=== PATIENT | male | born 1990 | race Caucasian/White ===

== ENCOUNTER 2018-12-25 01:04 | Emergency (ER) | payer MEDICAID, OTHER ==
[~2018-12-25] VITALS: Ht 180.3 cm; Wt 71.6 kg
[2018-12-25 01:08] VITALS: Ht 180.3 cm; Wt 71.6 kg
--- NOTE | 2018-12-25 05:35 | ERD ---
ER Documentation Chief Complaint Chief Complaint R testicle discoloration (purple) X 4 days, no trauma ROS All systems reviewed and are negative except as per history of present illness. Allergies Allergies: Coded Allergies: No Known Allergy (Unverified , 12/25/18) FmHx Family History: No diabetes, No coronary disease, No other Physical Exam Vitals Vital Signs Date Temp Pulse Resp B/P (MAP) Pulse Ox O2 O2 Flow FiO2 Time Delivery Rate 12/25/18 98.2 53 19 124/85 100 Room Air 05:53 (98) 12/25/18 98.2 53 18 132/73 100 01:08 (92) Physical Exam Const: No acute distress Head: Atraumatic Eyes: Normal Conjunctiva ENT: Normal External Ears, Nose and Mouth. Neck: Full range of motion. No meningismus. Resp: Clear to auscultation bilaterally Cardio: Regular rate and rhythm, no murmurs Abd: Soft, non tender, non distended. Normal bowel sounds Skin: No petechiae or rashes Back: No midline or flank tenderness Ext: No cyanosis, or edema Neur: Awake and alert Psych: Normal Mood and Affect : Right scrotal areas purple with no edema or tender to palpation noted. There is normal testicular lay. Results 24 hrs Laboratory Tests Test 12/25/18 04:52 Urine Color YELLOW Urine Clarity CLEAR Urine pH 5.0 Urine Specific [facility] 1.023 Urine Ketones NEGATIVE mg/dL Urine Nitrite NEGATIVE mg/dL Urine Bilirubin NEGATIVE mg/dL Urine Urobilinogen NEGATIVE mg/dL Urine Leukocyte Esterase NEGATIVE Gerber/ul Urine Hemoglobin NEGATIVE mg/dL Urine Glucose NEGATIVE mg/dL Urine Total Protein NEGATIVE mg/dl Procedures/[facility] DIAGNOSTIC IMAGING REPORT Patient: ANNE-MARIE WEN : 1990 Age: 27 Sex: M MR #: [id number] DOS: 12/25/18 0419 Ordering MD: AILEEN SANDERS Location: [facility] Room/Bed: PROCEDURE: US Scrotum. CLINICAL INDICATION: scrotal ecchymoses TECHNIQUE: Multiple sonographic images of the scrotal region were obtained utilizing a linear array transducer with grayscale and color-flow and a Doppler imaging. COMPARISON: No prior studies are available for comparison. FINDINGS: The testicles are normal in size the right measuring 5.49 x 2.79 x 3.5 cm and the left measuring 5.34 x 2.38 x 3.5 cm. The testicular parenchymal echogenicity is homogeneous without focal lesions. Flow to both testicles without ultrasonic evidence of testicular torsion. The epididymi are normal in size the right head measuring 1.3 x 0.87 x 0.77 cm and the left head measuring 1.33 x 1.26 x 0.96 cm. No focal epididymal lesions. No hydroceles or varicoceles demonstrated. IMPRESSION: 1. Unremarkable testicles without focal lesions and no ultrasonic evidence of testicular torsion. 2. Unremarkable epididymi. 3. No evidence of hydroceles. RPTAT:AAJJ Physician Ld Date Time Electronically viewed and signed by Ian Page Physician on 12/25/2018 05:18 BM/ CC: AILEEN SANDERS [phone] MDM: Ultrasound and UA within normal limits. In addition patient is not in any pain and has no symptoms. I have low suspicion for testicular torsion, orchitis, epididymitis, testicular abscess, or any other emergent condition. Patient advised to follow-up with urologist. Patient discharged with strict ER precautions. Patient advised to follow up with PMD. All questions answered at discharge. Departure Diagnosis: Primary Impression: Bruising Condition: Stable Patient Instructions: Contusions (Bruises) Referrals: [facility] YOU HAVE RECEIVED A MEDICAL SCREENING EXAM AND THE RESULTS INDICATE THAT YOU DO NOT HAVE A CONDITION THAT REQUIRES URGENT TREATMENT IN THE EMERGENCY DEPARTMENT. FURTHER EVALUATION AND TREATMENT OF YOUR CONDITION CAN WAIT UNTIL YOU ARE SEEN IN YOUR DOCTORS OFFICE WITHIN THE NEXT 1-2 DAYS. IT IS YOUR RESPONSIBILITY TO M JOHN AN APPOINTMENT FOR FOLOW-UP CARE. IF YOU HAVE A PRIMARY DOCTOR --you should call your primary doctor and schedule an appointment IF YOU DO NOT HAVE A PRIMARY DOCTOR YOU CAN CALL OUR PHYSICIAN REFERRAL HOTLINE AT IF YOU CAN NOT AFFORD TO SEE A PHYSICIAN YOU CAN CHOSE FROM THE [facility] [id number] [place]. [facility] [address] [facility] [facility] [address] [facility] [facility] [address] [facility]. [facility] [address] [facility]. [facility] [address] Additional Instructions: FOLLOW UP WITH YOUR PRIMARY CARE PHYSICIAN TOMORROW.Return to this facility if you are not improving as expected. AILEEN SANDERS December 25, 2018 05:35
[2018-12-25 05:53] VITALS: BP 124/85; PULSE 53; RESP 19
== END 2018-12-25 05:56 | disposition home or self-care (01) ==
LOC: FTE 01:04
DX: S30.22XA Contusion of scrotum and testes, initial encounter (principal); X58.XXXA Exposure to other specified factors, initial encounter; Y92.9 Unspecified place or not applicable
CPT/HCPCS: 76870; 81003